=== PATIENT | female | born 1990 | race Two or more races ===

== ENCOUNTER 2017-01-02 15:10 | Emergency (ER) | payer OTHER ==
[2017-01-02 15:17] VITALS: BP 117/68; PULSE 82; RESP 16; TEMP 97.9; O2SAT 98
--- NOTE | 2017-01-02 15:27 | UCPHY ---
H & P Patient Type: Established Chief Complaint Nursing Narrative: sore throat, fever, nausea since saturday Time Seen by Provider: 01/02/17 15:20 HPI/ROS: CHIEF COMPLAINT: Sore throat HISTORY OF PRESENT ILLNESS: Patient is a 26-year-old female who comes to the Urgent Care complaining of a sore throat. She states that her symptoms began on Saturday with sinus congestion. That has since resolved but her throat has gradually become more painful. She has had a low-grade fever that is subjective. She has felt nauseous but has not vomited. No diarrhea. No abdominal pain. No difficulty breathing. She does have a history of asthma. She has been using her inhaler at baseline. No chest pain. She does also have fibromyalgia and eczema and seasonal allergies which she states have been at baseline. REVIEW OF SYSTEMS: Constitutional: denies: chills, fever, recent illness, recent injury EENTM: See HPI Respiratory: denies: cough, shortness of breath Cardiac: denies: chest pain, irregular heart rate, lightheadedness, palpitations Gastrointestinal/Abdominal: denies: abdominal pain, diarrhea, nausea, vomiting, blood streaked stools Genitourinary: denies: dysuria, frequency, hematuria, pain Musculoskeletal: denies: joint pain, muscle pain Skin: denies: lesions, rash, jaundice, bruising Neurological: denies: headache, numbness, paresthesia, tingling, dizziness, weakness Hematologic/Lymphatic: denies: blood clots, easy bleeding, easy bruising Immunologic/allergic: denies: HIV/AIDS, transplant EXAM: GENERAL: Well-appearing, well-nourished and in no acute distress. HEAD: Atraumatic, normocephalic. EYES: Pupils equal round and reactive to light, extraocular movements intact, sclera anicteric, conjunctiva are normal. ENT: TMs normal, nares patent, oropharynx mild erythema without exudates. Moist mucous membranes. NECK: Normal range of motion, supple without lymphadenopathy or JVD. LUNGS: Breath sounds clear to auscultation bilaterally and equal. No wheezes rales or rhonchi. HEART: Regular rate and rhythm without murmurs, rubs or gallops. ABDOMEN: Soft, nontender, normoactive bowel sounds. No guarding, no rebound. No masses appreciated. BACK: No CVA tenderness, no spinal tenderness, step-offs or deformities EXTREMITIES: Normal range of motion, no pitting or edema. No clubbing or cyanosis. NEUROLOGICAL: Cranial nerves II through XII grossly intact. Normal speech, normal gait. 5/5 strength, normal movement in all extremities, normal sensation PSYCH: Normal mood, normal affect. SKIN: Warm, dry, normal turgor, no visible rashes or lesions. Source: Patient Exam Limitations: No limitations - Medical/Surgical History Hx Asthma: Yes Hx Chronic Respiratory Disease: No Hx Diabetes: No Hx Cardiac Disease: No Hx Renal Disease: No Hx Cirrhosis: No Hx Alcoholism: No Other PMH: asthma - Family History Significant Family History: No pertinent family hx - Social History Smoking Status: Never smoked Alcohol Use: Sober Drug Use: None Constitutional: Initial Vital Signs Temperature (C) 36.6 C 01/02/17 15:14 Heart Rate 82 01/02/17 15:14 Respiratory Rate 16 01/02/17 15:14 Blood Pressure 117/68 01/02/17 15:14 O2 Sat (%) 98 01/02/17 15:14 O2 Delivery Mode Room Air Allergies/Adverse Reactions: Cephalosporins Allergy (Verified 12/26/15 13:50) Macrolide Antibiotics Allergy (Verified 12/26/15 13:50) Penicillins Allergy (Verified 12/26/15 13:50) Home Medications: Medication Instructions Recorded Xopenex 12/26/15 Albuterol [Proventil] 17 gm IH Q4-6PRN PRN #1 aerosol 01/02/17 Levalbuterol 0.63 mg [Xopenex 0.63 mg IH TID #1 deyvial 01/02/17 0.63MG Neb (*)] Medical Decision Making ED Course/Re-evaluation: 4:00 p.m. we discussed the lab results. The patient is relieved. She does not wish to have antibiotics. We discussed the possibility of the PCR coming back positive tomorrow. Today will start her on a dose of Decadron which should last for 48 hours. She is asking for lower dose because she tends get anxious. She declines further workup or testing at this time. We discussed rest and hydration and antipyretics. She is also asking for a refill of her albuterol inhaler. Differential Diagnosis: Partial list of the Differential diagnosis considered include but were not limited to; viral syndrome, strep throat, influenza and although unlikely based on the history and physical exam, I also considered pneumonia, asthma, bronchitis. I discussed these differential diagnoses and the plan with the patient as well as the usual and expected course. The patient understands that the diagnosis is provisional and that in medicine we are not always correct and that further workup is often warranted. Usual and customary warnings were given. All of the patient's questions were answered. The patient was instructed to return to the emergency department should the symptoms at all worsen or return, otherwise to followup with the physician as we discussed. - Data Points Laboratory Results: 01/02/17 01/02/17 01/02/17 Unknown 15:15 15:15 Influenza Typ A,B (DFA) NEGATIVE FOR FLU (NEGATIVE) Group A Strep Screen NEGATIVE (NEGATIVE) Group A Strep DNA Pending Medications Given: Discontinued Medications Dexamethasone (Decadron) 6 mg PO EDNOW ONE Stop: 01/02/17 16:03 Last Admin: 01/02/17 16:05 Dose: 6 mg Departure - Departure Disposition: Home, Routine, Self-Care Clinical Impression: Pharyngitis Qualifiers: Pharyngitis/tonsillitis etiology: unspecified etiology Qualified Code(s): J02.9 - Acute pharyngitis, unspecified Asthma Qualifiers: Asthma severity: mild intermittent Asthma complication type: uncomplicated Qualified Code(s): J45.20 - Mild intermittent asthma, uncomplicated Condition: Fair Instructions: Asthma (ED), Pharyngitis (ED) Referrals: NONE *PRIMARY CARE P,. [Primary Care Provider] - As per Instructions Vanessa Moser MD [Medical Doctor] - As per Instructions Prescriptions: Albuterol [Proventil] 17 gm IH Q4-6PRN PRN #1 aerosol PRN Reason: Cough, Moderate Levalbuterol 0.63 mg [Xopenex 0.63MG Neb (*)] 0.63 mg IH TID #1 deyvial - PQRS PQRS Measurement: Not applicable
[2017-01-02] MEDS ORDERED: DEXAMETHASONE 4 MG TAB PO ONE (16:02)
[2017-01-03] MEDS ORDERED: LETS SOLN TOPICAL 1 EA SYR TP ONE (10:44)
== END 2017-01-02 16:07 | disposition home or self-care (01) ==
LOC: CED 15:10
DX: J02.9 Acute pharyngitis, unspecified (principal); J45.20 Mild intermittent asthma, uncomplicated; Z88.0 Allergy status to penicillin
CPT/HCPCS: 87400-PO; 87880-PO; 99214-PO; G0463-PO

== ENCOUNTER 2017-08-17 23:00 | Emergency (ER) | payer OTHER ==
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
[2017-08-17 23:20] VITALS: BP 126/93; PULSE 81; RESP 16; TEMP 97.9; O2SAT 97
== END 2017-08-17 23:49 | disposition home or self-care (01) ==
LOC: CED 23:00
DX: S16.1XXA Strain of muscle, fascia and tendon at neck level, initial encounter (principal); S09.90XA Unspecified injury of head, initial encounter; J45.909 Unspecified asthma, uncomplicated; V40.6XXA Car passenger injured in collision with pedestrian or animal in traffic accident, initial encounter; Y92.410 Unspecified street and highway as the place of occurrence of the external cause

== ENCOUNTER → 2018-12-22 | Outpatient (CLI) | payer OTHER | LOC: BMCIMAGING 15:25 | PROVIDERS: ATTEND Family Medicine | DX: M54.12 Radiculopathy, cervical region (principal); R13.10 Dysphagia, unspecified ==